=== PATIENT | male | born 1995 | race Caucasian/White ===

== ENCOUNTER 2017-08-24 15:51 | Emergency (ER) | payer SELFPAY ==
[~2017-08-24] VITALS: Ht 165.1 cm; Wt 107.5 kg
--- NOTE | 2017-08-24 16:20 | NUR ---
PATIENT WAS SEEN AND EXAMINED BY DR LAW ROOM 02A.
--- NOTE | 2017-08-24 16:26 | NUR ---
Patient discharged to home in stable conditon. Written and verbal after care instructions given. Patient verbalizes understanding of instructions.
[2017-08-24 16:28] VITALS: BP 118/78
== END 2017-08-24 16:29 | disposition home or self-care (01) ==
LOC: ER 15:52
DX: Z76.0 Encounter for issue of repeat prescription (principal); J45.909 Unspecified asthma, uncomplicated
CPT/HCPCS: 99283; A4663